=== PATIENT | female | born 1960 | race African-American/Black ===

== ENCOUNTER 2016-05-18 00:32 | Emergency (ER) | payer MEDICARE, MEDICAID ==
[~2016-05-18] VITALS: Ht 162.6 cm; Wt 117.9 kg
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
[2016-05-18 03:58] VITALS: BP 118/82
[2016-05-18 05:15] VITALS: BP 122/77
[2016-05-18 05:25] VITALS: BP 122/77
== END 2016-05-18 05:25 | disposition home or self-care (01) ==
LOC: EDBD 00:32 → EMR 00:52
DX: Z04.8 Encounter for examination and observation for other specified reasons (principal); Z59.0 Homelessness; I10 Essential (primary) hypertension
CPT/HCPCS: 99283

== ENCOUNTER 2017-06-11 22:38 | Emergency (ER) | payer OTHER, MEDICAID ==
[~2017-06-11] VITALS: Ht 162.6 cm; Wt 115.7 kg
[2017-06-11 22:55] VITALS: BP 120/78
[2017-06-11] MEDS ORDERED: TYLENOL EXTRA500 MG ORAL (23:43)
[2017-06-12] VITALS: BP 122/78
[2017-06-12 00:05] VITALS: BP 122/78
--- NOTE | 2017-06-13 00:39 | Emergency Room Report ---
History of Present Illness General Chief Complaint: General Complaint Source: Patient, Medical Record Present Illness HPI 56-year-old female presents ED for evaluation. Patient brought in by EMS complaining of chest pain and right leg pain. Has had this pain for many years now. Denies any chest pain at this time. Pain in the right leg is "pulling" 7 out of 10, nonradiating. Is able to walk without difficulty. Denies shortness of breath. No other aggravating relieving factors. Denies any other associated symptoms Allergies: Coded Allergies: No Known Allergies (Unverified , 05/18/16) Patient History Past Medical History: HTN Past Surgical History: none Pertinent Family History: none Social History: Denies: smoking, alcohol use, drug use Last Menstrual Period: none Now: No Immunizations: UTD Reviewed Nursing Documentation: PMH: Agreed, PSxH: Agreed Nursing Documentation-PMH Hx Hypertension: Yes Review of Systems All Other Systems: negative except mentioned in HPI Physical Exam Vital Signs Date Time Temp Pulse Resp B/P (MAP) Pulse Ox O2 Delivery O2 Flow Rate FiO2 06/11/17 22:39 98.4 88 18 118/79 98 Room Air 98.4 Sp02 EP Interpretation: reviewed, normal General Appearance: no apparent distress, alert, GCS 15, non-toxic, obese Head: normocephalic, atraumatic Eyes: bilateral eye normal inspection, bilateral eye PERRL ENT: hearing grossly normal, normal pharynx, no angioedema, normal voice Neck: full range of motion, supple/symm/no masses Respiratory: lungs clear, normal breath sounds, speaking full sentences, other - reproducible R sided chest wall pain Cardiovascular #1: regular rate, rhythm, no edema Cardiovascular #2: 2+ carotid (R), 2+ carotid (L), 2+ radial (R), 2+ radial (L) , 2+ dorsalis pedis (R), 2+ dorsalis pedis (L) Gastrointestinal: normal bowel sounds, non tender, soft, non-distended, no guarding, no rebound Rectal: deferred Genitourinary: normal inspection, no CVA tenderness Musculoskeletal: back normal, gait/station normal, normal range of motion, tender - R thigh. no bony tenderness Neurologic: alert, oriented x3, responsive, motor strength/tone normal, sensory intact, speech normal Psychiatric: judgement/insight normal, memory normal, mood/affect normal, no suicidal/homicidal ideation Reflexes: 3+ bicep (R), 3+ bicep (L), 3+ tricep (R), 3+ tricep (L), 3+ knee (R) , 3+ knee (L) Skin: normal color, no rash, warm/dry, well hydrated Lymphatic: no adenopathy Medical Decision Making Diagnostic Impression: Primary Impression: Leg strain Additional Impression: Chest wall pain ER Course Hospital Course 56-year-old female presents ED complaining of right-sided chest wall pain and right thigh pain for years Differential diagnoses include: Fracture, dislocation, sprain, contusion, bursitis Clinical course Patient placed on stretcher. After initial history, physical exam reveals an middle-aged female in no acute distress. There is reproducible right-sided chest wall pain. Lungs clear. Heart sounds normal. Likely muscular. Pain has been chronic for years. There is also right-sided thigh pain. No bony tenderness. Likely pulled muscle or muscle strain. Recommend warm compresses and anti-inflammatory medications. I do not see reason for imaging or further workup at this time Diagnosis - leg strain, chest wall pain stable and discharged to home with prescription for Tylenol. Followup with PMD. Return to ED if symptoms recur or worsen Last Vital Signs Date Time Temp Pulse Resp B/P (MAP) Pulse Ox O2 Delivery O2 Flow Rate FiO2 06/12/17 00:05 98.1 74 16 122/78 99 Room Air 98.1 Status: improved Disposition: HOME, SELF-CARE Condition: Stable Scripts Acetaminophen* (TYLENOL EXTRA STRENGTH*) 500 Mg Tablet 500 MG ORAL Q8H Y for Prn Headache/Temp > 101, #30 TAB 0 Refills Prov: RAGINI GUTIERREZ M.D. 06/11/17 Referrals: NON PHYSICIAN (PCP) Patient Instructions: Muscle Strain, [id number] RAGINI GUTIERREZ M.D. Jun 13, 2017 00:39
== END 2017-06-12 00:05 | disposition home or self-care (01) ==
LOC: EDUNIT# 22:38 → EDBD 22:38 → EMR 23:30
DX: S76.911A Strain of unspecified muscles, fascia and tendons at thigh level, right thigh, initial encounter (principal); X58.XXXA Exposure to other specified factors, initial encounter; Y92.89 Other specified places as the place of occurrence of the external cause; R07.89 Other chest pain; I10 Essential (primary) hypertension
CPT/HCPCS: 99283

== ENCOUNTER 2017-07-06 22:09 | Emergency (ER) | payer MEDICARE, MEDICAID ==
[~2017-07-06] VITALS: Ht 162.6 cm; Wt 115.7 kg
[~2017-07-06 22:09] MED LIST: TYLENOL EXTRA500 MG ORAL
[2017-07-06] MEDS ORDERED: QUETIAPINE FUMA25 MG ORAL (22:25)
--- NOTE | 2017-07-06 22:29 | Emergency Room Report ---
History of Present Illness General Chief Complaint: General Complaint Source: Patient, Medical Record, EMS Present Illness HPI Is a 56-year-old female who is homeless. She has history of schizophrenia and recently was discharged from the hospital a couple days ago. She says she took her Seroquel. She presents initially with chief complaint of hearing voices. She was in [facility] and would not leave so they called 911. Initially told EMS that she has leg pain and chest pain. This is a chronic problem. Then she switched to hearing voices. Here she complaining of leg has twitching and pulling sensation. Denies suicidal thought homicidal thought. Denies any nausea vomiting. Denies any fever or chills. No other complaint. Allergies: Coded Allergies: No Known Allergies (Unverified , 05/18/16) Patient History Past Medical History: see triage record, old chart reviewed, psych hx Past Surgical History: none Pertinent Family History: none Social History: Denies: drug use Now: No Immunizations: other Reviewed Nursing Documentation: PMH: Agreed; PSxH: Agreed Nursing Documentation-PMH Hx Hypertension: Yes History Of Psychiatric Problem: Yes - bipolar Review of Systems Eye: Denies: eye pain, blurred vision ENT: Denies: ear pain, nose congestion, throat swelling Respiratory: Denies: cough, shortness of breath Cardiovascular: Denies: chest pain, palpitations Gastrointestinal: Denies: abdominal pain, diarrhea, nausea, vomiting Musculoskeletal: Denies: back pain, joint pain Skin: Denies: rash Neurological: Denies: headache, numbness Endocrine: Denies: increased thirst, increased urine Hematologic/Lymphatic: Denies: easy bruising All Other Systems: negative except mentioned in HPI Physical Exam Vital Signs Date Time Temp Pulse Resp B/P (MAP) Pulse Ox O2 Delivery O2 Flow Rate FiO2 07/06/17 22:21 98.0 99 16 130/82 98 98.1 vitals normal Sp02 EP Interpretation: reviewed, normal General Appearance: well appearing, no apparent distress, alert, obese Head: normocephalic, atraumatic Eyes: bilateral eye PERRL, bilateral eye EOMI ENT: hearing grossly normal, normal pharynx Neck: full range of motion, supple, no meningismus Respiratory: chest non-tender, lungs clear, normal breath sounds Cardiovascular #1: regular rate, rhythm, no murmur Gastrointestinal: normal bowel sounds, non tender, no mass, no organomegaly, no bruit, non-distended Musculoskeletal: back normal, gait/station normal, normal range of motion Psychiatric: mood/affect normal Skin: warm/dry Medical Decision Making Diagnostic Impression: Primary Impression: Psychosis Qualified Codes: F20.3 - Undifferentiated schizophrenia ER Course Patient presents with psychosis which is stable. She denies suicidal homicidal. Her pain complaint is chronic in nature. We'll discharge. When I ask about [facility] placement, patient said "I do not like [facility]" and doesn't want to go to a [facility]. Last Vital Signs Date Time Temp Pulse Resp B/P (MAP) Pulse Ox O2 Delivery O2 Flow Rate FiO2 07/06/17 22:21 98.0 99 16 130/82 98 98.1 Status: unchanged Disposition: HOME, SELF-CARE Condition: Stable Additional Instructions: Take your [place]. Follow-up in mental health as scheduled. Return if symptom worsen. GLENN MÉNDEZ M.D. Jul 06, 2017 22:29
[2017-07-06 22:31] VITALS: BP 130/82
== END 2017-07-06 22:56 | disposition home or self-care (01) ==
LOC: EDBD 22:09 → EMR 22:30
DX: F29 Unspecified psychosis not due to a substance or known physiological condition (principal); F31.9 Bipolar disorder, unspecified; I10 Essential (primary) hypertension
CPT/HCPCS: 99282

== ENCOUNTER 2018-01-06 02:43 | Emergency (ER) | payer MEDICARE, MEDICAID ==
[~2018-01-06] VITALS: Ht 162.6 cm; Wt 118.8 kg
[~2018-01-06 02:43] MED LIST changes: +QUETIAPINE FUMA25 MG ORAL
[2018-01-06 02:48] VITALS: BP 132/64
[2018-01-06] MEDS ORDERED: Acetaminophen 500mg (ES) tab ORAL ONE (03:15)
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
[2018-01-06] MEDS ORDERED: QUETIAPINE FUMA25 MG ORAL (05:59)
[2018-01-06 06:09] VITALS: BP 129/62
[2018-01-06 06:10] VITALS: BP 129/62
== END 2018-01-06 06:18 | disposition home or self-care (01) ==
LOC: EDBD 02:43 → EMR 02:58
DX: S00.83XA Contusion of other part of head, initial encounter (principal); Y04.2XXA Assault by strike against or bumped into by another person, initial encounter; Y92.9 Unspecified place or not applicable; F91.9 Conduct disorder, unspecified; I10 Essential (primary) hypertension
CPT/HCPCS: 99283